=== PATIENT | female | born 2000 | race Caucasian/White ===

== ENCOUNTER 2022-04-08 22:06 | Emergency (ER) | payer MEDICAID ==
[~2022-04-08] VITALS: Ht 165.1 cm; Wt 52.6 kg
[2022-04-08 23:20] VITALS: BP_SYST 105
[2022-04-09] MEDS ORDERED: BACITRACIN ZINC 15 GM TOPICAL OINTMENT TP ONE (00:15)
[2022-04-09] MEDS ORDERED: BACITRACIN 1 GM OINT TP ONE (00:24)
[2022-04-09 00:32] VITALS: BP_SYST 110
== END 2022-04-09 00:32 | disposition home or self-care (01) ==
LOC: SED 22:06
DX: S61.307A Unspecified open wound of left little finger with damage to nail, initial encounter (principal); Z79.899 Other long term (current) drug therapy; X58.XXXA Exposure to other specified factors, initial encounter; Y93.89 Activity, other specified; Y92.89 Other specified places as the place of occurrence of the external cause; Y99.8 Other external cause status
CPT/HCPCS: 99284